=== PATIENT | female | born 1955 | race Hispanic/Latino ===

== ENCOUNTER 2020-05-14 00:21 | Emergency (ER) | payer OTHER ==
[~2020-05-14] VITALS: Ht 162.6 cm; Wt 78.0 kg
[2020-05-14] MEDS ORDERED: ONDANSETRON HCL INJ 2MG/ML 2ML 2 MG/ML VIAL IV STA (00:26)
[2020-05-14] MEDS ORDERED: ONDANSETRON HCL 4 MG ORAL DISINTEGRATING TAB PO ONE (00:30)
[2020-05-14] MEDS ORDERED: MECLIZINE HCL 12.5 MG TAB PO ONE (00:30)
[2020-05-14] MEDS ORDERED: ONDANSETRON HCL 4 MG ORAL DISINTEGRATING TAB ONE (00:41)
[2020-05-14 02:04] VITALS: BP 154/83
== END 2020-05-14 02:06 | disposition home or self-care (01) ==
LOC: ER 00:28
DX: H81.02 Meniere's disease, left ear (principal); R11.0 Nausea
CPT/HCPCS: 70450; 99283; J8597; Q0162

== ENCOUNTER 2023-10-30 20:00 | Inpatient (IN) | payer OTHER ==
[~2023-10-30] VITALS: Ht 162.6 cm; Wt 78.0 kg
[~2023-10-30 20:00] MED LIST: FISH OIL 1,0001 EAC7 PO; LEVOTHYROXINE112 MCG PO; LOSARTAN POTASS25 MG PO; MECLIZINE HCL12.5 MG PO; ZYRTEC-D TABLE1 EACH PO
[2023-10-30 20:04] VITALS: TEMP 98.2
[2023-10-30 20:25] LABS: BASOPHILS # (AUTO) 0.1 (0.0-0.1); BASOPHILS % 0.7 % (0.0-1.0); EOSINOPHILS # (AUTO) 0.2 (0.0-0.4); HEMATOCRIT 34.7 % (34.2-44.1); HEMOGLOBIN 11.6 g/dL (12.0-16.0); LYMPHOCYTES # (AUTO) 2.2 (1.0-3.2); LYMPHOCYTES % 24.4 % (18.0-39.1); MEAN CORPUSCULAR HEMOGLOBIN 25.8 pg (28-32); MEAN CORPUSCULAR HGB CONC 33.4 g/dL (31-35); MEAN CORPUSCULAR VOLUME 77.1 fL (81-99); MONOCYTES # (AUTO) 0.8 (0.2-0.8); MONOCYTES % 8.3 % (4.4-11.3); NEUTROPHILS # (AUTO) 5.8 (2.1-6.9); PLATELET COUNT 202 x10e3/uL (140-360); RED CELL DISTRIBUTION WIDTH 13.3 % (11.7-14.4); WHITE BLOOD COUNT 9.03 x10e3/uL (4.8-10.8)
[2023-10-30 20:40] LABS: ALBUMIN 4.2 g/dL (3.5-5.0); ALBUMIN/GLOBULIN RATIO 1.3 (0.8-2.0); ANION GAP 14.1 mmol/L (8-16); BILIRUBIN,TOTAL 0.8 mg/dL (0.2-1.2); CALCIUM 9.2 mg/dL (8.4-10.2); CREATININE, SERUM 0.82 mg/dL (0.57-1.11); TOTAL PROTEIN 7.5 g/dL (6.5-8.1)
[2023-10-30] MEDS: ONDANSETRON HCL INJ 2MG/ML 2ML 2 MG/ML VIAL IV STA (20:40)
[2023-10-30] MEDS: SODIUM CHLORIDE 0.9% 1000ML 1,000 ML IV ONE (20:40)
[2023-10-30 20:41] LABS: POTASSIUM 3.1 mmol/L (3.5-5.1)
[2023-10-30] MEDS ORDERED: IOPAMIDOL 370 MG/ML 100 ML INFUS..BTL INJ ONE (21:29)
[2023-10-30] MEDS: HALOPERIDOL LACTATE 5 MG/ML VIAL IV ONE (22:03)
[2023-10-30 22:30] VITALS: PULSE 82; RESP 16
[2023-10-30] MEDS ORDERED: SODIUM CHLORIDE FLUSH 10 ML SYR INJ PRN (23:15)
[2023-10-30 23:39] LABS: ANION GAP 13.1 mmol/L (8-16); CALCIUM 8.7 mg/dL (8.4-10.2); CREATININE, SERUM 0.75 mg/dL (0.57-1.11)
[2023-10-30 23:42] LABS: POTASSIUM 3.1 mmol/L (3.5-5.1)
[2023-10-31] VITALS (33 sets, daily range): BP systolic 110–166; BP diastolic 44–85; PULSE 74–116; RESP 12–30; TEMP 97.5–98.5; O2SAT 94–100
[2023-10-31] MEDS ORDERED: GUAIFENESIN/DEXTROMETHORPHAN LIQD 5 ML UDC PO PRN (01:15)
[2023-10-31] MEDS ORDERED: ONDANSETRON HCL INJ 2MG/ML 2ML 2 MG/ML VIAL IV PRN (01:15)
[2023-10-31] MEDS ORDERED: MELATONIN 3 MG TAB PO PRN (01:15)
[2023-10-31] MEDS ORDERED: MECLIZINE HCL 12.5 MG TAB PO PRN (01:15)
[2023-10-31] MEDS ORDERED: HYDRALAZINE HCL 20 MG/ML VIAL IV PRN (01:15)
[2023-10-31] MEDS ORDERED: DOCUSATE SODIUM 100 MG CAP PO PRN (01:15)
[2023-10-31] MEDS ORDERED: ACETAMINOPHEN 325 MG TAB PO PRN (01:15)
[2023-10-31] MEDS ORDERED: MAGNESIUM/ALUMINUM/SIMETHICONE 30 ML UDC PO PRN (01:15)
[2023-10-31] MEDS: THIAMINE HCL INJ 100 MG/ML 2ML VIAL IV ONE (01:45)
[2023-10-31] MEDS: MAGNESIUM SULF 1GRAM/DEXTROSE 100 ML IV ONE (01:45)
[2023-10-31] MEDS: SODIUM CHLORIDE 0.9% 500ML 500 ML IV ONE (01:46)
[2023-10-31] MEDS: POTASSIUM CHLORIDE 20MEQ/100ML 200 ML IV ONE (01:46)
[2023-10-31 06:13] LABS: BASOPHILS % 0.5 % (0.0-1.0); EOSINOPHILS % 0.2 % (0.0-6.0); HEMATOCRIT 36.8 % (34.2-44.1); HEMOGLOBIN 12.2 g/dL (12.0-16.0); LYMPHOCYTES # (AUTO) 1.5 (1.0-3.2); LYMPHOCYTES % 18.1 % (18.0-39.1); MEAN CORPUSCULAR HEMOGLOBIN 25.6 pg (28-32); MEAN CORPUSCULAR HGB CONC 33.2 g/dL (31-35); MEAN CORPUSCULAR VOLUME 77.1 fL (81-99); MONOCYTES # (AUTO) 0.5 (0.2-0.8); MONOCYTES % 6.1 % (4.4-11.3); NEUTROPHILS # (AUTO) 6.3 (2.1-6.9); NEUTROPHILS % 74.7 % (38.7-80.0); PLATELET COUNT 200 x10e3/uL (140-360); RED BLOOD COUNT 4.77 x10e6/uL (3.6-5.1); RED CELL DISTRIBUTION WIDTH 13.2 % (11.7-14.4); WHITE BLOOD COUNT 8.49 x10e3/uL (4.8-10.8)
[2023-10-31 06:43] LABS: ALBUMIN/GLOBULIN RATIO 1.2 (0.8-2.0); ANION GAP 13.7 mmol/L (8-16); BILIRUBIN,TOTAL 0.8 mg/dL (0.2-1.2); CALCIUM 9.2 mg/dL (8.4-10.2); CREATININE, SERUM 0.84 mg/dL (0.57-1.11); POTASSIUM 4.7 mmol/L (3.5-5.1); TOTAL PROTEIN 7.4 g/dL (6.5-8.1)
[2023-10-31 07:15] LABS: MAGNESIUM 2.8 MG/DL (1.3-2.1); PHOSPHORUS 2.9 MG/DL (2.3-4.7)
[2023-10-31] MEDS: THIAMINE HCL 100 MG TAB PO SCH (08:47)
[2023-10-31] MEDS: MULTIVITAMINS/MINERALS TAB PO SCH (08:47)
[2023-10-31 17:33] LABS: THYROID STIMULATING HORMONE 0.11 uIU/mL (0.350-4.940)
[2023-11-01] VITALS: BP 147/71; PULSE 74; RESP 18; TEMP 97.5; O2SAT 99
[2023-11-01 01:52] LABS: BILIRUBIN,URINE NEGATIVE (NEGATIVE); CLARITY,URINE CLEAR (CLEAR); COLOR,URINE YELLOW (YELLOW); GLUCOSE, URINE NEGATIVE (NEGATIVE); KETONES,URINE NEGATIVE (NEGATIVE); LEUKOCYTE ESTERASE ,URINE TRACE (NEGATIVE); NITRITE,URINE NEGATIVE (NEGATIVE); PH,URINE 6 (5 - 7); PROTEIN,URINE DIPSTICK NEGATIVE (NEGATIVE); URINE UROBILINOGEN 0.2 mg/dL (0.2 - 1)
[2023-11-01 01:54] LABS: BACTERIA,URINE FEW /HPF; EPITHELIAL CELLS,URINE FEW /LPF; RBC,URINE 0-5 /HPF (0-5); WBC,URINE (MAN) 0-5 /HPF (0-5)
[2023-11-01 02:30] LABS: SODIUM,URINE < 20 mmol/L
[2023-11-01 04:00] VITALS: BP 137/77; PULSE 70; RESP 18; TEMP 98.2; O2SAT 100
[2023-11-01 07:08] LABS: BASOPHILS % 0.6 % (0.0-1.0); EOSINOPHILS # (AUTO) 0.3 (0.0-0.4); EOSINOPHILS % 4.2 % (0.0-6.0); HEMATOCRIT 37.3 % (34.2-44.1); HEMOGLOBIN 12.2 g/dL (12.0-16.0); LYMPHOCYTES # (AUTO) 2.2 (1.0-3.2); LYMPHOCYTES % 33.9 % (18.0-39.1); MEAN CORPUSCULAR HEMOGLOBIN 25.6 pg (28-32); MEAN CORPUSCULAR HGB CONC 32.7 g/dL (31-35); MEAN CORPUSCULAR VOLUME 78.4 fL (81-99); MONOCYTES # (AUTO) 0.7 (0.2-0.8); MONOCYTES % 11.1 % (4.4-11.3); NEUTROPHILS # (AUTO) 3.2 (2.1-6.9); NEUTROPHILS % 49.9 % (38.7-80.0); PLATELET COUNT 217 x10e3/uL (140-360); RED BLOOD COUNT 4.76 x10e6/uL (3.6-5.1); RED CELL DISTRIBUTION WIDTH 13.9 % (11.7-14.4); WHITE BLOOD COUNT 6.41 x10e3/uL (4.8-10.8)
[2023-11-01 07:23] LABS: ALBUMIN 3.8 g/dL (3.5-5.0); ALBUMIN/GLOBULIN RATIO 1.2 (0.8-2.0); ANION GAP 10.9 mmol/L (8-16); BILIRUBIN,TOTAL 0.8 mg/dL (0.2-1.2); CALCIUM 9.7 mg/dL (8.4-10.2); CREATININE, SERUM 0.8 mg/dL (0.57-1.11); POTASSIUM 3.9 mmol/L (3.5-5.1); TOTAL PROTEIN 7.1 g/dL (6.5-8.1)
[2023-11-01 08:20] VITALS: BP 137/77; PULSE 70; RESP 18; TEMP 98.2; O2SAT 100
[2023-11-01 08:28] VITALS: BP 132/69; PULSE 67; RESP 18; TEMP 97.7; O2SAT 100
[2023-11-01] MEDS ORDERED: ONDANSETRON ODT4 MG PO (09:36)
[2023-11-01] MEDS ORDERED: SODIUM CHLORI1000 MG PO (09:36)
[2023-11-01] MEDS ORDERED: ONDANSETRON HCL 4 MG ORAL DISINTEGRATING TAB PO PRN (11:00)
[2023-11-01 12:06] VITALS: BP 125/66; PULSE 66; RESP 18; TEMP 97.3; O2SAT 100
== END 2023-11-01 12:55 | disposition home or self-care (01) | DRG 641 ==
LOC: ER 20:10 → ERHOLD 23:03 → ICU 23:55 → MED/SURG 10-31 18:46
PROVIDERS: ADMIT Internal Medicine; ATTEND Internal Medicine
DX: E87.1 Hypo-osmolality and hyponatremia (principal); R11.2 Nausea with vomiting, unspecified; I10 Essential (primary) hypertension; J45.909 Unspecified asthma, uncomplicated; E03.9 Hypothyroidism, unspecified; R42 Dizziness and giddiness; F41.9 Anxiety disorder, unspecified; K52.9 Noninfective gastroenteritis and colitis, unspecified; K44.9 Diaphragmatic hernia without obstruction or gangrene; E86.0 Dehydration; T47.4X5A Adverse effect of other laxatives, initial encounter; Z79.890 Hormone replacement therapy; Z11.52 Encounter for screening for COVID-19
CPT/HCPCS: 36415; 70450; 71045; 74177; 80048; 80053; 81001; 83690; 83735; 83930; 83935; 84100; 84295; 84300; 84443; 85025; 94799; 99252; 99284; J1630; J2405; J2470; J3411; J3475; J3480; J7030; J7040; Q9967; U0002